=== PATIENT | female | born 1965 | race American Indian/Alaskan Native ===

== ENCOUNTER 2019-03-15 13:16 | Emergency (ER) | payer SELFPAY ==
[2019-03-15] MEDS ORDERED: KETOROLAC 60 MG/2 ML INJ IM ONE (14:30)
--- NOTE | 2019-03-15 14:34 | Emergency Department Report ---
Chief Complaint: Fall Stated Complaint: SHOUDLER PAIN, NECK PAIN - HPI History of Present Illness: 53 yo female fall 2 days ago, slipped while holding package unable brace fall landed directly on right upper back - Exam Vital Signs: Vital Signs 03/15/19 13:18 Temperature 98.1 F Pulse Rate 88 Respiratory 20 Rate Blood Pressure 195/109 O2 Sat by Pulse 100 Oximetry Physical Exam: right upper post thorax tender swelling/contusion limited abduction of shoulder due to pain shoulder tender MSE screening note: Focused history and physical exam performed. Due to findings the following was ordered: xr rt shoulder and scapula toradol for pain ED Disposition for MSE Condition: Stable Referrals: PRIMARY CARE, [Primary Care Provider] - 3-5 Days
--- NOTE | 2019-03-15 15:25 | XRay Report ---
Right shoulder 4 views INDICATION: Right shoulder pain following fall 2 days ago IMPRESSION: No fracture or subluxation of the right shoulder is identified. Signer Name: Darrel Daigle MD Signed: 03/15/2019 3:21 PM Workstation Name: [id number]
--- NOTE | 2019-03-15 16:08 | Emergency Department Report ---
ED Upper Extremity Inj HPI - General Chief Complaint: Fall Stated Complaint: SHOUDLER PAIN, NECK PAIN Time Seen by Provider: 03/15/19 15:21 Source: patient Mode of arrival: Ambulatory Limitations: No Limitations - History of Present Illness Initial Comments: 53-year-old female states that 2 days ago she slipped on a piece of rug fell in her garage and struck her right shoulder on the ground. She denies loss of consciousness no head injury . Ongoing Swelling to posterior right shoulder and right shoulder pain MD Complaint: Injury to:: right, shoulder Other Injuries: none Improves With: none Context: fall Associated Symptoms: denies other symptoms, neck pain Treatments Prior to Arrival: cold therapy - Related Data Previous Rx's Medication Instructions Recorded Last Taken Type Cyclobenzaprine [Flexeril] 10 mg PO TID PRN #15 tablet 03/15/19 Unknown Rx Ibuprofen [Motrin] 800 mg PO Q8HR PRN #21 tablet 03/15/19 Unknown Rx Allergies Allergy/AdvReac Type Severity Reaction Status Date / Time No Known Allergies Allergy Unverified 03/15/19 13:18 ED Review of Systems ROS: Stated complaint: SHOUDLER PAIN, NECK PAIN Other details as noted in HPI Constitutional: no symptoms reported ENT: denies: ear pain, throat pain Respiratory: denies: cough Cardiovascular: denies: chest pain, palpitations, syncope Gastrointestinal: denies: abdominal pain, nausea Musculoskeletal: other (right shoulder and right neck pain, right shoulder swelling) ED Past Medical Hx - Past Medical History Previous Medical History?: No - Surgical History Past Surgical History?: Yes Additional Surgical History: partial hysterectomy - Social History Smoking Status: Never Smoker Substance Use Type: Alcohol, Marijuana - Medications Home Medications: Home Medications Medication Instructions Recorded Confirmed Last Taken Type Cyclobenzaprine [Flexeril] 10 mg PO TID PRN #15 tablet 03/15/19 Unknown Rx Ibuprofen [Motrin] 800 mg PO Q8HR PRN #21 tablet 03/15/19 Unknown Rx ED Physical Exam - General Limitations: No Limitations General appearance: alert, in no apparent distress - Head Head exam: Present: atraumatic - Eye Eye exam: Present: normal appearance - ENT ENT exam: Present: normal exam - Neck Neck exam: Present: normal inspection - Respiratory Respiratory exam: Present: normal lung sounds bilaterally. Absent: respiratory distress, wheezes, rales - Cardiovascular Cardiovascular Exam: Present: regular rate, normal heart sounds - GI/Abdominal GI/Abdominal exam: Present: soft. Absent: distended, tenderness - Extremities Exam Extremities exam: Present: full ROM, normal capillary refill, other (swelling to right posterior shoulder apppears to be hematoma distal pulse intact equal hand grasp) - Back Exam Back exam: Present: normal inspection. Absent: vertebral tenderness - Neurological Exam Neurological exam: Present: alert, oriented X3 - Psychiatric Psychiatric exam: Present: normal affect - Skin Skin exam: Present: warm, dry, intact, normal color ED Course Vital Signs 03/15/19 03/15/19 03/15/19 13:18 16:29 16:30 Temperature 98.1 F Pulse Rate 88 82 Respiratory 20 18 Rate Blood Pressure 195/109 185/113 O2 Sat by Pulse 100 100 Oximetry 03/15/19 16:42 Temperature Pulse Rate Respiratory 18 Rate Blood Pressure O2 Sat by Pulse Oximetry ED Medical Decision Making - Radiology Data Radiology results: report reviewed - Medical Decision Making 53-year-old female status post a fall at her home 2 days ago she now has a right posterior shoulder hematoma and swelling and pain to the right side of her neck. X-ray of her right shoulder reveals no fracture and no subluxation. Patient has no limitation in movement of her right arm she has strong square shear operator of the right hand her distal pulses palpable neurovascular intact. To continue warm compress ibuprofen for pain and follow up with PCP Critical care attestation.: If time is entered above; I have spent that time in minutes in the direct care o f this critically ill patient, excluding procedure time. ED Disposition Clinical Impression: Cervical strain Qualifiers: Encounter type: initial encounter Qualified Code(s): S16.1XXA - Strain of muscle, fascia and tendon at neck level, initial encounter Contusion of right shoulder Qualifiers: Encounter type: initial encounter Qualified Code(s): S40.011A - Contusion of right shoulder, initial encounter Disposition: TO HOME OR SELFCARE Is pt being admited?: No Does the pt Need Aspirin: No Condition: Stable Instructions: Muscle Strain (ED), Contusion in Adults (ED) Additional Instructions: Continue with moist heat. Take medication as prescribed and follow up with PCP. Prescriptions: Cyclobenzaprine [Flexeril] 10 mg PO TID PRN #15 tablet PRN Reason: Muscle Spasm Ibuprofen [Motrin] 800 mg PO Q8HR PRN #21 tablet PRN Reason: Pain , Severe (7-10) Referrals: PRIMARY CARE, [Primary Care Provider] - 3-5 Days Time of Disposition: 16:22
[2019-03-15 16:38] VITALS: BP 185/113
== END 2019-03-15 16:43 | disposition home or self-care (01) ==
LOC: ED 13:16
DX: S16.1XXA Strain of muscle, fascia and tendon at neck level, initial encounter (principal); S40.011A Contusion of right shoulder, initial encounter; Z90.710 Acquired absence of both cervix and uterus; F12.10 Cannabis abuse, uncomplicated; X58.XXXA Exposure to other specified factors, initial encounter; Y93.89 Activity, other specified; Y92.89 Other specified places as the place of occurrence of the external cause; Y99.8 Other external cause status
CPT/HCPCS: 73030; 96372; 99283; J1885

== ENCOUNTER 2020-10-16 13:56 | Emergency (ER) | payer SELFPAY ==
[2020-10-16 14:13] VITALS: BP 179/101
--- NOTE | 2020-10-16 14:28 | Emergency Department Report ---
ED ENT HPI - General Chief complaint: Dental/Oral Stated complaint: TOOTHPAIN JAW SWOLLEN Time Seen by Provider: 10/16/20 14:21 Source: patient Mode of arrival: Ambulatory Limitations: No Limitations - History of Present Illness Initial comments: Patient is a 54-year-old female presents emergency room with complaints of right lower dental pain that began 3 days ago. She states that approximately 3 days ago part of her metal tooth filling fell out and she cracked her tooth. She states last night she began having increasing pain and some noticed some swelling to her right lower jaw. She states that due to it being a weekend she was unable to get in with a dentist. She denies any fever, chills, vomiting, diarrhea, difficulty swallowing, difficulty breathing. Patient denies any past medical history. No allergies to medications. - Related Data Previous Rx's Medication Instructions Recorded Last Taken Type Cyclobenzaprine [Flexeril] 10 mg PO TID PRN #15 tablet 03/15/19 Unknown Rx Ibuprofen [Motrin] 800 mg PO Q8HR PRN #21 tablet 03/15/19 Unknown Rx Chlorhexidine Mouthwash [Peridex] 15 ml MM BID #1 bottle 10/16/20 Unknown Rx Naproxen 375 mg PO BID PRN #14 tablet 10/16/20 Unknown Rx Penicillin Vk [Veetids TAB] 500 mg PO QID 7 Days #56 tablet 10/16/20 Unknown Rx Allergies Allergy/AdvReac Type Severity Reaction Status Date / Time No Known Allergies Allergy Verified 10/16/20 14:09 ED Dental HPI - General Chief complaint: Dental/Oral Stated complaint: TOOTHPAIN JAW SWOLLEN Time Seen by Provider: 10/16/20 14:21 Source: patient Mode of arrival: Ambulatory Limitations: No Limitations - Related Data Previous Rx's Medication Instructions Recorded Last Taken Type Cyclobenzaprine [Flexeril] 10 mg PO TID PRN #15 tablet 03/15/19 Unknown Rx Ibuprofen [Motrin] 800 mg PO Q8HR PRN #21 tablet 03/15/19 Unknown Rx Chlorhexidine Mouthwash [Peridex] 15 ml MM BID #1 bottle 10/16/20 Unknown Rx Naproxen 375 mg PO BID PRN #14 tablet 10/16/20 Unknown Rx Penicillin Vk [Veetids TAB] 500 mg PO QID 7 Days #56 tablet 10/16/20 Unknown Rx Allergies Allergy/AdvReac Type Severity Reaction Status Date / Time No Known Allergies Allergy Verified 10/16/20 14:09 ED Review of Systems ROS: Stated complaint: TOOTHPAIN JAW SWOLLEN Other details as noted in HPI Comment: All other systems reviewed and negative ED Past Medical Hx - Past Medical History Previous Medical History?: No - Surgical History Past Surgical History?: Yes Additional Surgical History: partial hysterectomy - Social History Smoking Status: Current Every Day Smoker - Medications Home Medications: Home Medications Medication Instructions Recorded Confirmed Last Taken Type Cyclobenzaprine [Flexeril] 10 mg PO TID PRN #15 tablet 03/15/19 Unknown Rx Ibuprofen [Motrin] 800 mg PO Q8HR PRN #21 tablet 03/15/19 Unknown Rx Chlorhexidine Mouthwash [Peridex] 15 ml MM BID #1 bottle 10/16/20 Unknown Rx Naproxen 375 mg PO BID PRN #14 tablet 10/16/20 Unknown Rx Penicillin Vk [Veetids TAB] 500 mg PO QID 7 Days #56 tablet 10/16/20 Unknown Rx ED Physical Exam - General Limitations: No Limitations General appearance: alert, in no apparent distress - Head Head exam: Present: atraumatic, normocephalic - Eye Eye exam: Present: normal appearance - ENT ENT exam: Present: mucous membranes moist, other (there is a cracked tooth with a partial missing filling to the right lower molar, there is a adjacent induration of the gumline with mild right lower facial edema, uvula is midline, no uvular edema or deviation, no trismus, no tongue elevation, no muffled voice ) - Respiratory Respiratory exam: Absent: respiratory distress, accessory muscle use - Neurological Exam Neurological exam: Present: alert, oriented X3 - Psychiatric Psychiatric exam: Present: normal affect, normal mood - Skin Skin exam: Present: warm, dry, intact ED Course Vital Signs 10/16/20 14:11 Temperature 98.1 F Pulse Rate 76 Respiratory 18 Rate Blood Pressure 179/101 O2 Sat by Pulse 100 Oximetry ED Medical Decision Making - Medical Decision Making Patient is a 54-year-old female presents emergency room with complaints of right lower dental pain that began 3 days ago. She states that approximately 3 days ago part of her metal tooth filling fell out and she cracked her tooth. She states last night she began having increasing pain and some noticed some swelling to her right lower jaw. She states that due to it being a weekend she was unable to get in with a dentist. She denies any fever, chills, vomiting, diarrhea, difficulty swallowing, difficulty breathing. Patient denies any past medical history. No allergies to medications. Vitals with elevated blood pressure, otherwise stable. Patient is not have any symptoms related to elevation in blood pressure, discussed lifestyle modifications and will have patient follow-up with primary care doctor for reexamination. On exam:there is a cracked tooth with a partial missing filling to the right lower molar, there is a adjacent induration of the gumline with mild right lower facial edema, uvula is midline, no uvular edema or deviation, no trismus, no tongue elevation, no muffled voice. Examination appears consistent with dental caries and dental abscess. No signs of facial abscess or Will's at this time. Patient given prescription for medications. Advised patient Please use medication as prescribed. Please follow-up with a dentist. It is very important that you follow-up. Return to emergency room for any new or worsening symptoms. Please follow-up with a primary care doctor regarding the elevation in your blood pressure during today's visit. Eat a low-sodium diet. Incorporate 30 to 60 minutes of daily exercise. Increase your water intake. Keep a blood pressure log and take this to the primary care doctor. Critical care attestation.: If time is entered above; I have spent that time in minutes in the direct care of this critically ill patient, excluding procedure time. ED Disposition Clinical Impression: Cracked tooth, Dental caries, Dental abscess, Elevated blood pressure reading Disposition: 01 HOME / SELF CARE / HOMELESS Is pt being admited?: No Does the pt Need Aspirin: No Condition: Stable Instructions: Dental Abscess Additional Instructions: Please use medication as prescribed. Please follow-up with a dentist. It is very important that you follow-up. Return to emergency room for any new or worsening symptoms. Please follow-up with a primary care doctor regarding the elevation in your blood pressure during today's visit. Eat a low-sodium diet. Incorporate 30 to 60 minutes of daily exercise. Increase your water intake. Keep a blood pressure log and take this to the primary care doctor. Prescriptions: Naproxen 375 mg PO BID PRN #14 tablet PRN Reason: pain Chlorhexidine Mouthwash [Peridex] 15 ml MM BID #1 bottle Penicillin Vk [Veetids TAB] 500 mg PO QID 7 Days #56 tablet Referrals: [facility] [Outside] - 3-5 Days [facility] [Outside] - 3-5 Days ELVIS RAMEY MD [Staff Physician] - 3-5 Days [facility] [Provider Group] - 3-5 Days Time of Disposition: 14:26 Print Language: YORUBA
== END 2020-10-16 14:57 | disposition home or self-care (01) ==
LOC: ED 13:56
DX: K03.81 Cracked tooth (principal); K02.9 Dental caries, unspecified; K04.7 Periapical abscess without sinus; R03.0 Elevated blood-pressure reading, without diagnosis of hypertension; F17.200 Nicotine dependence, unspecified, uncomplicated; Z79.899 Other long term (current) drug therapy; Z90.710 Acquired absence of both cervix and uterus
CPT/HCPCS: 99282

== ENCOUNTER 2021-10-01 14:38 | Emergency (ER) | payer OTHER ==
[2021-10-01 21:57] LABS: Bacteria,Urine 2+ /HPF (Negative); Hyaline Casts,Urine 4 /LPF; Mucus,Urine 3+ /HPF
[2021-10-01 22:06] LABS: Color,Urine Yellow (Yellow)
--- NOTE | 2021-10-01 23:47 | Emergency Department Report ---
ED Female HPI - General Chief complaint: Abdominal Pain Stated complaint: POSSIBLE UTI/BLADDER Source: patient Mode of arrival: Ambulatory Limitations: No Limitations - History of Present Illness Initial comments: Patient is a 55-year-old -[place] female with no past medical history who presents to the ED with complaint of acute onset persistent urinary frequency and urgency, vaginal discharge, dysuria for the last 1 week. Patient states that the vaginal discharge appears to be having a fishy smell. Patient denies dizziness, syncope, fever, chills, nausea and vomiting, vaginal bleeding, low back pain, abdominal pain, diarrhea, traumatic injury or heavy lifting and dyspareunia. MD Complaint: vaginal discharge, dysuria, other (urinary urgency and frequency; ) -: Sudden, week(s) (1) Location: suprapubic, other (vaginal) Radiation: non-radiating Severity: moderate Severity scale (0 -10): 4 Quality: burning, aching Consistency: intermittent Improves with: none Worsens with: urination Are you Now?: No Associated Symptoms: denies other symptoms, vaginal discharge, dysuria. denies: vaginal bleeding, abdominal pain, nausea/vomiting, fever/chills, headaches, loss of appetite, hematuria, rash, seizure, shortness of breath, syncope - Related Data Sexually active: Yes Previous Rx's Medication Instructions Recorded Last Taken Type Cyclobenzaprine [Flexeril] 10 mg PO TID PRN #15 tablet 03/15/19 Unknown Rx Chlorhexidine Mouthwash [Peridex] 15 ml MM BID #1 bottle 10/16/20 Unknown Rx Naproxen 375 mg PO BID PRN #14 tablet 10/16/20 Unknown Rx Penicillin Vk [Veetids TAB] 500 mg PO QID 7 Days #56 tablet 10/16/20 Unknown Rx Fluconazole (Nf) [Diflucan TAB] 150 mg PO ONCE #1 tablet 10/01/21 Unknown Rx Ibuprofen [Motrin 800 MG tab] 800 mg PO Q8HR PRN #21 tablet 10/01/21 Unknown Rx Ondansetron [Zofran Odt] 4 mg PO Q8HR PRN #15 tab.rapdis 10/01/21 Unknown Rx Sulfamethoxazole/Trimethoprim 1 each PO Q12H #20 tab 10/01/21 Unknown Rx [Bactrim DS TAB] metroNIDAZOLE [Flagyl TAB] 500 mg PO Q12HR #14 tab 10/01/21 Unknown Rx Allergies Allergy/AdvReac Type Severity Reaction Status Date / Time No Known Allergies Allergy Verified 10/01/21 15:10 ED Review of Systems ROS: Stated complaint: POSSIBLE UTI/BLADDER Other details as noted in HPI Constitutional: denies: chills, fever Eyes: denies: eye pain, eye discharge, vision change ENT: denies: ear pain, throat pain Respiratory: denies: cough, shortness of breath, wheezing Cardiovascular: denies: chest pain, palpitations Endocrine: no symptoms reported Gastrointestinal: denies: abdominal pain, nausea, diarrhea Genitourinary: urgency, dysuria, frequency, discharge. denies: hematuria Musculoskeletal: denies: back pain, joint swelling, arthralgia Skin: denies: rash, lesions Neurological: denies: headache, weakness, paresthesias Psychiatric: denies: anxiety, depression Hematological/Lymphatic: denies: easy bleeding, easy bruising ED Past Medical Hx - Past Medical History Previous Medical History?: No - Surgical History Past Surgical History?: No Additional Surgical History: partial hysterectomy - Social History Smoking Status: Current Every Day Smoker - Medications Home Medications: Home Medications Medication Instructions Recorded Confirmed Last Taken Type Cyclobenzaprine [Flexeril] 10 mg PO TID PRN #15 tablet 03/15/19 Unknown Rx Chlorhexidine Mouthwash [Peridex] 15 ml MM BID #1 bottle 10/16/20 Unknown Rx Naproxen 375 mg PO BID PRN #14 tablet 10/16/20 Unknown Rx Penicillin Vk [Veetids TAB] 500 mg PO QID 7 Days #56 tablet 10/16/20 Unknown Rx Fluconazole (Nf) [Diflucan TAB] 150 mg PO ONCE #1 tablet 10/01/21 Unknown Rx Ibuprofen [Motrin 800 MG tab] 800 mg PO Q8HR PRN #21 tablet 10/01/21 Unknown Rx Ondansetron [Zofran Odt] 4 mg PO Q8HR PRN #15 tab.rapdis 10/01/21 Unknown Rx Sulfamethoxazole/Trimethoprim 1 each PO Q12H #20 tab 10/01/21 Unknown Rx [Bactrim DS TAB] metroNIDAZOLE [Flagyl TAB] 500 mg PO Q12HR #14 tab 10/01/21 Unknown Rx ED Physical Exam - General Limitations: No Limitations General appearance: alert, in no apparent distress - Head Head exam: Present: atraumatic, normocephalic, normal inspection - Eye Eye exam: Present: normal appearance, PERRL, EOMI Pupils: Present: normal accommodation - ENT ENT exam: Present: normal exam, normal orophraynx, mucous membranes moist, TM's normal bilaterally, normal external ear exam - Neck Neck exam: Present: normal inspection, full ROM. Absent: tenderness - Respiratory Respiratory exam: Present: normal lung sounds bilaterally. Absent: respiratory distress, wheezes, rales, rhonchi, stridor, chest wall tenderness, accessory muscle use, decreased breath sounds, prolonged expiratory - Cardiovascular Cardiovascular Exam: Present: regular rate, normal rhythm, normal heart sounds. Absent: systolic murmur, diastolic murmur, rubs, gallop - GI/Abdominal GI/Abdominal exam: Present: soft, normal bowel sounds. Absent: tenderness, guarding, rebound, rigid, hyperactive bowel sounds, hypoactive bowel sounds, organomegaly, bruit - Extremities Exam Extremities exam: Present: normal inspection, full ROM, normal capillary refill. Absent: tenderness - Back Exam Back exam: Present: normal inspection, full ROM. Absent: tenderness, CVA tenderness (R), CVA tenderness (L), muscle spasm, paraspinal tenderness, ve rtebral tenderness - Neurological Exam Neurological exam: Present: alert, oriented X3, CN II-XII intact, normal gait, reflexes normal - Psychiatric Psychiatric exam: Present: normal affect, normal mood - Skin Skin exam: Present: warm, dry, intact, normal color. Absent: rash ED Course Vital Signs 10/01/21 15:08 Temperature 98.8 F Pulse Rate 74 Respiratory 18 Rate Blood Pressure 165/98 [Left] O2 Sat by Pulse 99 Oximetry ED Medical Decision Making - Medical Decision Making This is a 55-year-old -[place] female with no past medical history who presents to the ED with complaint of acute onset persistent urinary frequency and urgency, vaginal discharge, dysuria for the last 1 week. Patient states that the vaginal discharge appears to be having a fishy smell. In the ED, patient is alert and oriented x3 and is not in any distress. Urinalysis showed significant urinary tract infection and wet prep test was positive for Gardnerella vaginalis consistent with bacterial vaginosis. Patient was therefore discharged home on oral antibiotics and advised to follow-up with her primary care physician in 7 to 10 days for reevaluation or return to the ED immediately if symptoms get worse. - Differential Diagnosis Bacterial vaginosis; UTI; STD; Yasmine vaginitis Critical care attestation.: If time is entered above; I have spent that time in minutes in the direct care of this critically ill patient, excluding procedure time. ED Disposition Clinical Impression: Acute urinary tract infection, Bacterial vaginosis Disposition: HOME / SELF CARE / HOMELESS Is pt being admited?: No Does the pt Need Aspirin: No Condition: Stable Instructions: Bacterial Vaginosis, [id number], Bacterial Vaginosis (ED), Abdominal Pain (ED) Additional Instructions: All lab test results were reviewed and are all nonactionable except for urinalysis that showed significant urinary tract infection and wet prep test danilo t was positive for Gardnerella vaginalis consistent with bacterial vaginosis. Therefore take medication with food, drink plenty of fluids and follow-up with your primary care physician in 7 to 10 days for reevaluation. Return to the ED immediately if symptoms get worse. Prescriptions: Sulfamethoxazole/Trimethoprim [Bactrim DS TAB] 1 each PO Q12H #20 tab Fluconazole (Nf) [Diflucan TAB] 150 mg PO ONCE #1 tablet metroNIDAZOLE [Flagyl TAB] 500 mg PO Q12HR #14 tab Ibuprofen [Motrin 800 MG tab] 800 mg PO Q8HR PRN #21 tablet PRN Reason: Pain , Severe (7-10) Ondansetron [Zofran Odt] 4 mg PO Q8HR PRN #15 tab.rapdis PRN Reason: Nausea Referrals: [facility] [Provider Group] - 7-10 days Forms: STI Treatment and Prevention Time of Disposition: 23:51 Print Language: [place]
[2021-10-02 00:24] VITALS: BP 157/93
== END 2021-10-02 00:24 | disposition home or self-care (01) ==
LOC: ED 14:38
DX: N39.0 Urinary tract infection, site not specified (principal); N77.1 Vaginitis, vulvitis and vulvovaginitis in diseases classified elsewhere; F17.200 Nicotine dependence, unspecified, uncomplicated
CPT/HCPCS: 81001; 87076; 87086; 87186; 87210; 99283